=== PATIENT | female | born 1965 | race Caucasian/White ===

== ENCOUNTER → 2019-02-16 | Outpatient (CLI) | payer BC ==
--- NOTE | 2019-02-16 13:09 | CT ---
EXAMINATION TYPE: CT soft tissue neck wo con DATE OF EXAM: 02/16/2019 HISTORY: difficulty swallowing, neck fullness COMPARISON: NONE CT DLP: 371 mGycm. Automated Exposure Control for Dose Reduction was Utilized. TECHNIQUE: CT scan of the neck is performed without IV contrast as ordered, axial images are obtaine d, coronal and sagittal reformatted images are reviewed. FINDINGS: Exam noted suboptimal due to lack of IV contrast which limits evaluation for mucosal lesion s and neck adenopathy. Airway: Thyroid gland normal in size slightly more hypodense diffusely then typical without discrete nodule Parotid/submandibular glands: No gross abnormality seen. Carotid/Vascular Structures: No suspicious abnormality is seen. Osseous Structures: Anterior fusion plate with artificial disc material C4-C7 level is present . Sati sfactory alignment is seen. Other: There is mild to moderate lobulated mucosal thickening in inferior aspect of both maxillary si nuses in addition there is horizontal air-fluid level in the right maxillary sinus. Parapharyngeal fat spaces are symmetric and felt within normal limits. No definitive greater than 1 c m neck adenopathy is identified. IMPRESSION: No suspicious mass or adenopathy identified on noncontrast CT. The visualized airway is patent.
== END | disposition home or self-care (01) ==
LOC: RADCTMAIN 11:35
PROVIDERS: ATTEND Family Medicine
DX: R22.1 Localized swelling, mass and lump, neck (principal)
CPT/HCPCS: 70490

== ENCOUNTER → 2021-01-23 | Outpatient (CLI) | payer BC ==
[2021-01-23 15:20] LABS: Basophils % (A) 1 %; Eosinophils % (A) 0 %; HCT 39.9 % (34.0-46.0); HGB 12.9 gm/dL (11.4-16.0); Lymphocytes # (A) 1.4 k/uL (1.0-4.8); Lymphocytes % (A) 26 %; MCH 32.1 pg (25.0-35.0); MCHC 32.4 g/dL (31.0-37.0); MCV 99.3 fL (80.0-100.0); Monocytes # (A) 0.4 k/uL (0-1.0); Monocytes % (A) 7 %; Neutrophils # (A) 3.5 k/uL (1.3-7.7); Neutrophils % (A) 64 %; Platelet Count 256 k/uL (150-450); RBC 4.02 m/uL (3.80-5.40); RDW 12.5 % (11.5-15.5); WBC 5.5 k/uL (3.8-10.6)
== END | disposition home or self-care (01) ==
LOC: LABPAT 14:22
PROVIDERS: ATTEND Obstetrics & Gynecology
DX: Z01.818 Encounter for other preprocedural examination (principal); N95.0 Postmenopausal bleeding; N84.0 Polyp of corpus uteri
CPT/HCPCS: 36415; 85025

== ENCOUNTER 2021-02-05 07:05 | Day surgery (SDC) | payer BC ==
[2021-01-29 15:08] VITALS: BMI 20.6
[~2021-02-05 07:05] MED LIST: DEXAMETHASONE SOD PHOSPHATE 4 MG/ML 1 ML VIAL IV ONE; LACTATED RINGERS 1,000 ML IV SCH; LIDOCAINE 1% (10MG/ML) FOR IV START INTRADERMA PRN; ONDANSETRON 4 MG/2 ML VIAL IVP ONE; Pre Op ABX Message 1 EACH MISC MISCELLANE ONE
[2021-02-05] MEDS ORDERED: KETOROLAC 15 MG/ML 1 ML VIAL ONE (08:22)
[2021-02-05] MEDS ORDERED: LIDOCAINE 1% INJ 10MG/ML (20 ML MDV) ONE (08:22)
[2021-02-05] MEDS ORDERED: MIDAZOLAM 2 MG/2 ML VIAL ONE (08:22)
[2021-02-05] MEDS ORDERED: fentaNYL (PF) 50 MCG/ML 2 ML AMP ONE (08:22)
[2021-02-05] MEDS ORDERED: PROPOFOL 10 MG/ML 20 ML VIAL IV ONE (08:22)
[2021-02-05] MEDS ORDERED: LIDOCAINE 1%-EPI 1:100,000 20 ML VIAL SQ ONE (08:44)
--- NOTE | 2021-02-05 09:03 | P.OP ---
Date of Procedure: 02/05/21 Preoperative Diagnosis: Postmenopausal bleeding Endometrial polyps on pelvic ultrasound Postoperative Diagnosis: Postmenopausal bleeding Procedure(s) Performed: Diagnostic hysteroscopy with dilation and curettage Anesthesia: MAC Surgeon: Diana Rosas Estimated Blood Loss (ml): 5 IV fluids (ml): 25 Urine output (ml): 300 Pathology: other (Endometrial curettings) Condition: stable Disposition: PACU Indications for Procedure: Postmenopausal bleeding with findings of possible endometrial polyps on pelvic ultrasound Operative Findings: Atrophic endometrium with no evidence of intracavitary lesions. Description of Procedure: After the patient was met in the preoperative holding area and all questions were answered, she was taken to the operating room where anesthetic was administered without incident. Appropriate timeout procedure was undertaken. She was positioned, prepped and draped in the dorsal lithotomy position. Exam under anesthetic was undertaken. Bladder was drained for approximately 25 mL of clear urine. Single-sided speculum was placed in the vagina and the cervix was grasped anteriorly with a single-tooth tenaculum. Paracervical block with lido nafisa plus epinephrine was placed. The uterus was sounded to 5-1/2 cm. The cervix was then sequentially dilated with Chang dilators to allow for passage of the diagnostic hysteroscope. The hysteroscope was introduced and atrophic appearing and major was appreciated. The bilateral tubal ostia were visible. There was no evidence of intracavitary lesions or polyps noted. The hysteroscope was removed. The cervix was further dilated to allow for passage of the small sharp banjo curet. The cavity was circumferentially curettaged with scant specimen obtained. Following curettage the cervix was observed. The tenaculum was removed. No active bleeding was noted. All instruments were then removed from the vagina. The patient was awoken from anesthetic and transported to recovery area in stable condition. All counts reported to me as correct by the operating room staff.
[2021-02-05 09:08] VITALS: TEMP 97.3
[2021-02-05 09:54] VITALS: RESP 16
[2021-02-05 10:10] VITALS: BP 103/59; PULSE 69
== END 2021-02-05 10:19 | disposition home or self-care (01) ==
LOC: OR 07:05
PROVIDERS: ATTEND Obstetrics & Gynecology
DX: N95.0 Postmenopausal bleeding (principal); N84.0 Polyp of corpus uteri; Z98.890 Other specified postprocedural states; Z98.51 Tubal ligation status; Z79.890 Hormone replacement therapy; Z79.52 Long term (current) use of systemic steroids; Z79.899 Other long term (current) drug therapy; Z88.2 Allergy status to sulfonamides; Z83.3 Family history of diabetes mellitus; Z80.8 Family history of malignant neoplasm of other organs or systems
CPT/HCPCS: 81025; 88305; 58558; J2250; J1100; J2405; J2001; J3010; J1885; J2704